=== PATIENT | female | born 1945 | race Caucasian/White ===

== ENCOUNTER 2017-05-04 08:01 | Day surgery (SDC) | payer OTHER ==
--- NOTE | 2017-05-04 07:50 | PDHPUP ---
History & Physical Update H&P update statement: This history and physical update is based on an assessment of the patient which was completed after admission or registration (within 24 hours), but prior to the surgery/procedure. H&P update: H&P reviewed & patient examined, no change in patient's condition since H&P completed
[2017-05-04] MEDS ORDERED: LR 1,000 ML IV ONE (08:12)
[2017-05-04] MEDS ORDERED: ERTAPENEM 1 GM VIAL IV ONE (08:12)
[2017-05-04] MEDS ORDERED: LIDOCAINE 1% 2 ML INJ ID PRN (08:14)
[2017-05-04 08:56] VITALS: PULSE 85
[2017-05-04] MEDS ORDERED: BUPIVACAINE 0.5% 30 ML SDV ONE ×2 (09:18→09:25)
[2017-05-04] MEDS ORDERED: HEPARIN 1000 UNIT/1 ML MDV ONE ×4 (09:18→09:52)
[2017-05-04] MEDS ORDERED: ceFAZolin 1 GM/5 ML SYR ONE ×2 (09:19→09:26)
[2017-05-04] MEDS ORDERED: fentaNYL 100 MCG/2 ML INJ ONE ×4 (09:50→11:33)
[2017-05-04] MEDS ORDERED: PROPOFOL 200 MG/20 ML VIAL ONE (09:50)
[2017-05-04] MEDS ORDERED: ROCURONIUM 50 MG/5 ML VIAL ONE ×2 (09:52→10:46)
[2017-05-04] MEDS ORDERED: LIDOCAINE 2% 5 ML SDV ONE (09:52)
[2017-05-04] MEDS ORDERED: ONDANSETRON 4 MG/2 ML VIAL ONE ×2 (10:09→12:16)
[2017-05-04] MEDS ORDERED: DEXAMETHASONE 4 MG/ML VIAL ONE (10:09)
--- NOTE | 2017-05-04 10:12 | PDANEPAE ---
ANE History of Present Illness Patient presents for lap pastor ANE Past Medical History - Cardiovascular History Hx Hypertension: No Hx Arrhythmias: No Hx Chest Pain: No Hx Coronary Artery / Peripheral Vascular Disease: No Hx CHF / Valvular Disease: No Hx Palpitations: No Cardiovascular History Comment: MILD HEART MURMUR - ASYMPTOMATIC. EDEMA MEHDI LE - TAKES LASIX - Pulmonary History Hx COPD: No Hx Asthma/Reactive Airway Disease: No Hx Recent Upper Respiratory Infection: No Hx Oxygen in Use at Home: No Hx Sleep Apnea: Yes Sleep Apnea Screening Result - Last Documented: Positive Pulmonary History Comment: CHILDHOOD ASTHMA - Neurologic History Hx Cerebrovascular Accident: No Hx Seizures: No Hx Dementia: No - Endocrine History Hx Diabetes: Yes Endocrine History Comment: THYROIDECTOMY PARTIAL - Renal History Hx Renal Disorders: No - Liver History Hx Hepatic Disorders: No Hepatic History Comment: GALL BLADDER SXS X PAST 1.5 YRS - Neurological & Psychiatric Hx Hx Neurological and Psychiatric Disorders: No - Cancer History Hx Cancer: No - Congenital Disorder History Hx Congenital Disorders: No - GI History Hx Gastrointestinal Disorders: Yes Gastrointestinal History Comment: GALL BLADDER SXS - Other Health History Other Health History: NEG - Chronic Pain History Chronic Pain: Yes (ARTHRITIS GENERALIZED JOINTS) - Surgical History Prior Surgeries: TONSILLECTOMY. CYST JAW. PARIAL THYROIDECTOMY. HYSTERECTOMY. TKA MEHDI. BLOOD CLOT L CALF REMOVED SURGICALLY FOLLOWING ZIP LINE INJURY ANE Review of Systems Review of Systems: - Exercise capacity METS (RN): 4 METS ANE Patient History - Allergies Allergies/Adverse Reactions: metronidazole [From Flagyl] Allergy (Severe, Verified 05/03/17 10:43) Anaphylaxis, HIVES acetaminophen [From Percocet] Allergy (Intermediate, Verified 05/03/17 10:43) WEIRD FEELING cefixime [From Suprax] Allergy (Intermediate, Verified 05/03/17 10:43) CAUSED C DIFF TO FLARE codeine Allergy (Intermediate, Verified 05/03/17 10:43) RASH,ITCHY, WEIRD FEELING morphine Allergy (Intermediate, Verified 05/03/17 10:43) HALLUCINATIONS - BUGS CRAWLING ON SKIN oxycodone [From Percocet] Allergy (Intermediate, Verified 05/03/17 10:43) WEIRD FEELING Sulfa (Sulfonamide Antibiotics) Allergy (Intermediate, Verified 05/03/17 10:43) Rash cefuroxime [From Ceftin] Allergy (Verified 05/03/17 10:43) Rash erythromycin base Allergy (Verified 05/03/17 10:43) YEAST INF - Home Medications Home medications: home medication list seen and reviewed Home Medications: Acetaminophen 05/03/17 [Last Taken 05/03/17] Aspirin 05/03/17 [Last Taken 05/02/17] Flexeril 05/03/17 [Last Taken 05/02/17] Herbals/Supplements -Info Only 05/03/17 [Last Taken 05/02/17] Ibuprofen 05/03/17 [Last Taken 04/24/17] Lasix 05/03/17 [Last Taken 05/03/17] Levothyroxine 05/03/17 [Last Taken 05/04/17] Oxycodone HCl 05/03/17 [Last Taken 04/27/17] Ranitidine HCl 05/03/17 [Last Taken 05/03/17] - NPO status NPO Status: no food or drink >8 hours NPO Since - Liquids (Date): 05/04/17 NPO Since - Liquids (Time): 06:00 NPO Since - Solids (Date): 05/03/17 NPO Since - Solids (Time): 20:00 - Anes Hx Anes Hx: no prior problems - Smoking Hx Smoking Status: Never smoked - Family Anes Hx Family Hx Anesthesia Complications: NEG ANE Labs/Vital Signs - Labs Result Diagrams: 05/04/17 08:45 - Vital Signs Blood Pressure: 144/78 Heart Rate: 85 Respiratory Rate: 12 O2 Sat (%): 93 Height: 160.02 cm Weight: 113.398 kg ANE Physical Exam - Airway Neck exam: FROM Mallampati Score: Class 2 Mouth exam: normal dental/mouth exam - Pulmonary Pulmonary: no respiratory distress - Cardiovascular Cardiovascular: regular rate and rhythym - ASA Status ASA Status: III ANE Anesthesia Plan Anesthesia Plan: general endotracheal anesthesia (rba discussed)
--- NOTE | 2017-05-04 10:13 | PDANEPAE ---
ANE Past Medical History - Cardiovascular History Hx Hypertension: No Hx Arrhythmias: No Hx Chest Pain: No Hx Coronary Artery / Peripheral Vascular Disease: No Hx CHF / Valvular Disease: No Hx Palpitations: No Cardiovascular History Comment: MILD HEART MURMUR - ASYMPTOMATIC. EDEMA MEHDI LE - TAKES LASIX - Pulmonary History Hx COPD: No Hx Asthma/Reactive Airway Disease: No Hx Recent Upper Respiratory Infection: No Hx Oxygen in Use at Home: No Hx Sleep Apnea: Yes Sleep Apnea Screening Result - Last Documented: Positive Pulmonary History Comment: CHILDHOOD ASTHMA - Neurologic History Hx Cerebrovascular Accident: No Hx Seizures: No Hx Dementia: No - Endocrine History Hx Diabetes: Yes Endocrine History Comment: THYROIDECTOMY PARTIAL - Renal History Hx Renal Disorders: No - Liver History Hx Hepatic Disorders: No Hepatic History Comment: GALL BLADDER SXS X PAST 1.5 YRS - Neurological & Psychiatric Hx Hx Neurological and Psychiatric Disorders: No - Cancer History Hx Cancer: No - Congenital Disorder History Hx Congenital Disorders: No - GI History Hx Gastrointestinal Disorders: Yes Gastrointestinal History Comment: GALL BLADDER SXS - Other Health History Other Health History: NEG - Chronic Pain History Chronic Pain: Yes (ARTHRITIS GENERALIZED JOINTS) - Surgical History Prior Surgeries: TONSILLECTOMY. CYST JAW. PARIAL THYROIDECTOMY. HYSTERECTOMY. TKA MEHDI. BLOOD CLOT L CALF REMOVED SURGICALLY FOLLOWING ZIP LINE INJURY ANE Review of Systems Review of Systems: - Exercise capacity METS (RN): 4 METS ANE Patient History - Allergies Allergies/Adverse Reactions: metronidazole [From Flagyl] Allergy (Severe, Verified 05/03/17 10:43) Anaphylaxis, HIVES acetaminophen [From Percocet] Allergy (Intermediate, Verified 05/03/17 10:43) WEIRD FEELING cefixime [From Suprax] Allergy (Intermediate, Verified 05/03/17 10:43) CAUSED C DIFF TO FLARE codeine Allergy (Intermediate, Verified 05/03/17 10:43) RASH,ITCHY, WEIRD FEELING morphine Allergy (Intermediate, Verified 05/03/17 10:43) HALLUCINATIONS - BUGS CRAWLING ON SKIN oxycodone [From Percocet] Allergy (Intermediate, Verified 05/03/17 10:43) WEIRD FEELING Sulfa (Sulfonamide Antibiotics) Allergy (Intermediate, Verified 05/03/17 10:43) Rash cefuroxime [From Ceftin] Allergy (Verified 05/03/17 10:43) Rash erythromycin base Allergy (Verified 05/03/17 10:43) YEAST INF - Home Medications Home Medications: Acetaminophen 05/03/17 [Last Taken 05/03/17] Aspirin 05/03/17 [Last Taken 05/02/17] Flexeril 05/03/17 [Last Taken 05/02/17] Herbals/Supplements -Info Only 05/03/17 [Last Taken 05/02/17] Ibuprofen 05/03/17 [Last Taken 04/24/17] Lasix 05/03/17 [Last Taken 05/03/17] Levothyroxine 05/03/17 [Last Taken 05/04/17] Oxycodone HCl 05/03/17 [Last Taken 04/27/17] Ranitidine HCl 05/03/17 [Last Taken 05/03/17] - NPO status NPO Since - Liquids (Date): 05/04/17 NPO Since - Liquids (Time): 06:00 NPO Since - Solids (Date): 05/03/17 NPO Since - Solids (Time): 20:00 - Smoking Hx Smoking Status: Never smoked - Family Anes Hx Family Hx Anesthesia Complications: NEG ANE Labs/Vital Signs - Labs Result Diagrams: 05/04/17 08:45 - Vital Signs Blood Pressure: 144/78 Heart Rate: 85 Respiratory Rate: 12 O2 Sat (%): 93 Height: 160.02 cm Weight: 113.398 kg ANE Anesthesia Plan Urgent/Emergent Case: Addi santillan completed preop but documented later for safe timely pt care
[2017-05-04] MEDS ORDERED: IOPAMIDOL (ISOVUE-M 300) 15 ML VIAL ONE (10:32)
[2017-05-04] MEDS ORDERED: SUGAMMADEX SODIUM 200 MG/2 ML VIAL IVP ONE (10:41)
[2017-05-04] MEDS ORDERED: LABETALOL HCL 5 MG/ML 20 ML MDV IVP PRN (11:09)
[2017-05-04] MEDS ORDERED: LR 500 ML IV PRN (11:09)
[2017-05-04] MEDS ORDERED: NALOXONE HCL 0.4 MG/ML INJ IVP PRN (11:09)
[2017-05-04] MEDS ORDERED: ONDANSETRON 4 MG/2 ML VIAL IVP PRN (11:09)
[2017-05-04] MEDS: fentaNYL 100 MCG/2 ML INJ IVP PRN ×4 (11:10→11:44)
--- NOTE | 2017-05-04 11:10 | POSTANESTH ---
Post Anesthetic Evaluation Cardiovascular Status: Similar to Pre-Op Cond Respiratory Status: Similar to Pre-op Cond. Level of Consciousness/Mental Status: Can Participate in Eval Pain Control: Adequate, Prn Tx Ordered Nausea/Vomiting Control: Adequate, Prn Tx Ordered Complications Possibly Related to Anesthesia: None Noted
[2017-05-04] MEDS ORDERED: KETOROLAC 30 MG/1 ML SDV IVP ONE (11:36)
--- NOTE | 2017-05-04 11:36 | POSTOPPROG ---
Post Op Note Date of Operation: 05/04/17 Surgeon: Librado Zamora Yam Curer: Ginger Robertson Anesthesiologist: Andrew Roblero Anesthesia: GET(General Endotracheal) Pre-op Diagnosis: cholelithiasis Post-op Diagnosis: same, chronic cholecystitis with adhesions Procedure: lap pastor Findings: large stone, adhesions Inf/Abcess present in the surg proc area at time of surgery?: No EBL: Minimal Complications: none Specimen(s): gallbladder to pathology
[2017-05-04 11:38] VITALS: TEMP 97.7
[2017-05-04] MEDS ORDERED: KETOROLAC 30 MG/1 ML SDV ONE (11:46)
[2017-05-04] MEDS ORDERED: OXYCODONE/APAP 5/325 TAB PO PRN (12:05)
[2017-05-04] MEDS ORDERED: oxyCODONE IR 5 MG TAB PO ONE (12:09)
--- NOTE | 2017-05-04 14:22 | GOP ---
[f rep st] OPERATIVE REPORT DATE OF OPERATION: 05/04/2017 SURGEON: Librado Zamora MD OFFICE SUPPORT SPECIALIST: Ginger Robertson, [facility]. ANESTHESIA: General endotracheal by Shahab Roblero MD PREOPERATIVE DIAGNOSIS: Symptomatic cholelithiasis and cholecystitis. POSTOPERATIVE DIAGNOSIS: Symptomatic cholelithiasis and cholecystitis. PROCEDURE PERFORMED: Laparoscopic cholecystectomy. FINDINGS: The patient was found to have a single large stone obstructing the the gallbla dder. The gallbladder was completely covered with adhesions and ducts were small. ESTIMATED BLOOD LOSS: Negligible. DESCRIPTION OF PROCEDURE: The patient was taken to the operating room where she received satisfactor y general endotracheal anesthesia by Dr. Roblero, was placed in a supine position, prepped and draped i n usual sterile fashion. A periumbilical incision was made. A Veress needle was inserted. Pneumoperit oneum was established. A trocar was introduced. Laparoscope introduced. Good visualization was obtain ed. Three other trocars were placed in the upper abdomen under direct vision. The gallbladder was obs cured with omental adhesions. These were taken down with electrocautery until the gallbladder could b e identified. It was then grasped and elevated up and the remaining adhesions were freed up, exposing the entire gallbladder down to the cystic triangle. The cystic triangle was carefully dissected free . The cystic duct and cystic artery were isolated, multiply hemoclipped and divided with care to avoi d injury to the common bile duct. The peritoneum of the gallbladder was incised. The gallbladder was dissected free in the bed and hepatic fossa and extracted through the upper midline port site. Wound was irrigated. Hemostasis was assured. Trocars were removed under direct vision. Trocar sites were cl osed with 0 Vicryl for the fascia, 4-0 Monocryl subcuticular stitch for the skin, and all layers infi ltrated with 0.5% Marcaine. DISPOSITION: She was taken to the recovery room in good condition. COMPLICATIONS: None. /[id number]/MODL
[2017-05-04 14:32] VITALS: BP 133/76; RESP 16; O2SAT 93
== END 2017-05-04 13:47 | disposition home or self-care (01) ==
LOC: FSGY 08:01
PROVIDERS: ATTEND Surgery
PROC: 0FT44ZZ Resection of Gallbladder, Percutaneous Endoscopic Approach (ICD-10-PCS; principal; 2017-05-04 09:15)
DX: K80.10 Calculus of gallbladder with chronic cholecystitis without obstruction (principal); R10.11 Right upper quadrant pain
CPT/HCPCS: J1100; J1335; J1885; J2405; J2704; J3010; Q9967